=== PATIENT | male | born 1955 | race Caucasian/White ===

== ENCOUNTER 2019-05-17 06:47 | Day surgery (SDC) | payer MEDICARE, OTHER ==
[~2019-05-17] VITALS: Ht 175.3 cm; Wt 95.5 kg
[2019-05-17] MEDS ORDERED: NS IV 500 ML 500 ML ONE (07:30)
[2019-05-17 07:45] VITALS: BP 141/77
[2019-05-17] MEDS ORDERED: MIDAZOLAM 2 MG/2 ML (VERSED) VIAL IVP ONE (07:45)
[2019-05-17] MEDS ORDERED: fentaNYL INJECTION 100 MCG/2 ML AMP IVP ONE (07:45)
[2019-05-17] MEDS ORDERED: NS IV 500 ML 500 ML IV PRN (07:45)
--- NOTE | 2019-05-17 08:01 | Progress Note-Pre Operative ---
Pre-Operative Progress Note H&P Reviewed The H&P was reviewed, patient examined and no changes noted. Date Seen by Provider: May 17, 2019 Time Seen by Provider: 08:00 Date H&P Reviewed: May 17, 2019 Time H&P Reviewed: 08:01 Pre-Operative Diagnosis: MITRA Wiley MD May 17, 2019 08:01
[2019-05-17] MEDS ORDERED: fentaNYL INJECTION 100 MCG/2 ML AMP ONE ×2 (08:02)
[2019-05-17] MEDS ORDERED: MIDAZOLAM 2 MG/2 ML (VERSED) VIAL ONE ×4 (08:03)
--- NOTE | 2019-05-17 08:25 | Endoscopy Procedure Report ---
Colonoscopy Procedure Performed: Colonoscopy Pre-Operative Diagnosis: screen Post-Operative Diagnosis: none Atg Java Developer: None. Indications for Procedure: scereen Procedure Details: Informed consent was obtained, the risks, benefits and alternatives to the procedure were explained to the patient. The Wellington Soni, a 64 yr old male, was brought to to surgery area, sedated with 8 mg of Versed and 150 ug of fentanyl. He was placed in the left lateral decubitus position. Under direct visualization the scope was passed easily to the cecum. Cecum is identified by landmarks. Scope was carefully withdrawn. Findings: Ascending Colon: none Transverse Colon: none Descending/Sigmoid: none Rectum: none Estimated Blood Loss: 0mL Specimens: none Complications: None; patient tolerated the procedure well. Final Diagnosis: no findings so normal exam other than minimal scattered diverticuli in sigmoid MITRA TURNER MD May 17, 2019 08:25
[2019-05-17 08:50] VITALS: BP 114/67
[2019-05-17 09:15] VITALS: BP 121/73
[2019-05-17] MEDS ORDERED: DIPH25CA79 PO (09:19)
[2019-05-17] MEDS ORDERED: CARV3.12 PO (09:19)
[2019-05-17] MEDS ORDERED: GABA-488 PO (09:19)
[2019-05-17] MEDS ORDERED: NITR0.3T7 SL (09:19)
[2019-05-17] MEDS ORDERED: NAPR-1070 PO (09:19)
[2019-05-17] MEDS ORDERED: LISI-556 PO (09:19)
[2019-05-17] MEDS ORDERED: ASPI-999 PO (09:19)
== END 2019-05-17 09:30 ==
LOC: ENDO 06:47
PROVIDERS: ATTEND Pediatrics
DX: Z12.11 Encounter for screening for malignant neoplasm of colon (principal); M06.9 Rheumatoid arthritis, unspecified; I25.10 Atherosclerotic heart disease of native coronary artery without angina pectoris; E78.00 Pure hypercholesterolemia, unspecified; Z79.899 Other long term (current) drug therapy; Z95.1 Presence of aortocoronary bypass graft; Z82.3 Family history of stroke; Z82.49 Family history of ischemic heart disease and other diseases of the circulatory system; Z80.9 Family history of malignant neoplasm, unspecified; Z91.041 Radiographic dye allergy status; Z90.49 Acquired absence of other specified parts of digestive tract; Z79.82 Long term (current) use of aspirin

== ENCOUNTER 2023-05-04 05:23 | Emergency (ER) | payer MEDICARE, OTHER ==
[~2023-05-04] VITALS: Ht 175.2 cm; Wt 102.1 kg
[~2023-05-04 05:23] MED LIST: ASPI-999 PO; CARV3.12 PO; DIPH25CA79 PO; GABA-488 PO; LISI5TAB20 PO; NAPR-1070 PO; NITR0.3T7 SL
[2023-05-04] MEDS ORDERED: NS IV 1000 ML 1,000 ML IV STA (05:43)
[2023-05-04] MEDS ORDERED: morphine INJ 10 MG/ML 1ML (SYR OR VIAL) IVP STA (05:43)
[2023-05-04] MEDS ORDERED: KETOROLAC 15 MG/ML VIAL IVP ONE (05:45)
[2023-05-04] MEDS ORDERED: ONDANSETRON 4 MG/2 ML (SDV) Z0FRAN IVP ONE (05:45)
--- NOTE | 2023-05-04 05:50 | ED Abdominal Pain ---
General Stated Complaint: VOMITING|ABD PAIN|BACK PAIN Source of Information: Patient Exam Limitations: No Limitations History of Present Illness Date Seen by Provider: May 04, 2023 Time Seen by Provider: 05:25 Initial Comments 68-year-old male with past medical history of hypertension, CAD, prior history of kidney stones coming in via private vehicle due to left flank pain and suprapubic discomfort. Started around 2 AM this morning, associated with nonbloody nonbilious vomiting. He states it feels just like prior kidney stones. Typically he passes the stones by himself, has never needed a stent. Denies any fever, or any other concerns. He did have hydrocodone at home which she took, but vomited immediately afterwards. Allergies and Home Medications Allergies Uncoded Allergies: IV Contrast (Adverse Reaction, Unknown, 05/17/19) Patient Home Medication List Home Medication List Reviewed: Yes Aspirin (Aspirin) 81 Mg Tab.chew, 81 MG PO DAILY, (Reported) Entered as Reported by: JOHNNY DARLING on 05/17/19918 Carvedilol (Coreg) 3.125 Mg Tablet, 3.125 MG PO BID, (Reported) Entered as Reported by: JOHNNY DARLING on 05/17/19918 Diphenhydramine HCl (Benadryl) 25 Mg Capsule, 25 MG PO NEEDED, (Reported) Entered as Reported by: JOHNNY DARLING on 05/17/19918 Gabapentin (Gabapentin) 300 Mg Capsule, 300 MG PO DAILY, (Reported) Entered as Reported by: JOHNNY DARLING on 05/17/19918 Ibuprofen (Ibuprofen) 600 Mg Tablet, 600 MG PO Q6H PRN for PAIN-MILD Prescribed by: KEDAR MATOS on 05/04/23636 Lisinopril (Lisinopril) 5 Mg Tablet, 5 MG PO DAILY, (Reported) Entered as Reported by: JOHNNY DARLING on 05/17/19918 Naproxen Sodium (Anaprox Ds) 550 Mg Tablet, 550 MG PO BID, (Reported) Entered as Reported by: JOHNNY DARLING on 05/17/19918 Nitroglycerin (Nitroglycerin) 0.3 Mg Tab.subl, 0.3 MG SL NEEDED, (Reported) Entered as Reported by: JOHNNY DARLING on 05/17/19918 Ondansetron (Ondansetron Odt) 4 Mg Tab.rapdis, 4 MG SL Q6H PRN for NAUSEA/VOMITING Prescribed by: KEDAR MATOS on 05/04/23 0637 Tamsulosin HCl (Flomax) 0.4 Mg Cap, 0.4 MG PO DAILY Prescribed by: KEDAR MATOS on 05/04/23 0637 Review of Systems Review of Systems Constitutional: No fever EENTM: No Symptoms Reported Respiratory: No Symptoms Reported Cardiovascular: No Symptoms Reported Gastrointestinal: See HPI Genitourinary: See HPI Musculoskeletal: no symptoms reported Skin: no symptoms reported Psychiatric/Neurological: No Symptoms Reported Endocrine: No Symptoms Reported Hematologic/Lymphatic: No Symptoms Reported Past Wvwklqp-Nwiiit-Mxjcvy Hx Patient Social History Alcohol Use?: Yes Alcohol type: Beer Past Medical History Surgeries: Yes CABG, Orthopedic Respiratory: No Cardiac: Yes Coronary Artery Disease Neurological: No Genitourinary: No Gastrointestinal: No Musculoskeletal: Yes Arthritis Endocrine: No HEENT: No Cancer: No Psychosocial: No Integumentary: No Blood Disorders: No Physical Exam Vital Signs Vital Signs - First Documented 05/04/23 05:30 Temp 36.0 Pulse 66 Resp 16 B/P (MAP) 162/85 (110) Pulse Ox 99 O2 Delivery Room Air Capillary Refill : Height/Weight/BMI Height: 5'9.00" Weight: 210lbs. 9.0oz. 95.419743ld; 31.1 BMI Method: General Appearance: WD/WN, no apparent distress Neck: full range of motion Respiratory: chest non-tender, lungs clear, normal breath sounds, no respiratory distress, no accessory muscle use Cardiovascular: regular rate, rhythm, no edema Gastrointestinal: normal bowel sounds, non tender, soft; No distended, No guarding, No rebound Extremities: normal range of motion, non-tender Back: normal inspection, no CVA tenderness Neurologic/Psychiatric: no motor/sensory deficits, alert, normal mood/affect Skin: normal color, warm/dry Progress/Results/Core Measures Results/Orders Lab Results Laboratory Tests Test 05/04/23 05:50 05/04/23 06:00 05/04/23 06:33 Range/Units White Blood Count 10.6 4.3-11.0 10^3/uL Red Blood Count 4.76 4.30-5.52 10^6/uL Hemoglobin 14.6 13.3-17.7 g/dL Hematocrit 43 40-54 % Mean Corpuscular Volume 91 80-99 fL Mean Corpuscular Hemoglobin 31 25-34 pg Mean Corpuscular Hemoglobin Concent 34 32-36 g/dL Red Cell Distribution Width 13.1 10.0-14.5 % Platelet Count 237 130-400 10^3/uL Mean Platelet Volume 9.7 9.0-12.2 fL Immature Granulocyte % (Auto) 1 % Neutrophils (%) (Auto) 80 H 42-75 % Lymphocytes (%) (Auto) 14 12-44 % Monocytes (%) (Auto) 5 0-12 % Eosinophils (%) (Auto) 1 0-10 % Basophils (%) (Auto) 1 0-10 % Neutrophils # (Auto) 8.5 H 1.8-7.8 10^3/uL Lymphocytes # (Auto) 1.4 1.0-4.0 10^3/uL Monocytes # (Auto) 0.5 0.0-1.0 10^3/uL Eosinophils # (Auto) 0.1 0.0-0.3 10^3/uL Basophils # (Auto) 0.1 0.0-0.1 10^3/uL Immature Granulocyte # (Auto) 0.1 0.0-0.1 10^3/uL Sodium Level 139 135-145 MMOL/L Potassium Level 4.0 3.6-5.0 MMOL/L Chloride Level 104 98-107 MMOL/L Carbon Dioxide Level 21 21-32 MMOL/L Anion Gap 14 5-14 MMOL/L Blood Urea Nitrogen 29 H 7-18 MG/DL Creatinine 1.38 H 0.60-1.30 MG/DL Estimat Glomerular Filtration Rate 55 BUN/Creatinine Ratio 21 Glucose Level 126 H 70-105 MG/DL Calcium Level 9.3 8.5-10.1 MG/DL Corrected Calcium 9.3 8.5-10.1 MG/DL Total Bilirubin 0.3 0.1-1.0 MG/DL Aspartate Amino Transf (AST/SGOT) 14 5-34 U/L Alanine Aminotransferase (ALT/SGPT) 11 0-55 U/L Alkaline Phosphatase 103 40-136 U/L Total Protein 6.7 6.4-8.2 GM/DL Albumin 4.0 3.2-4.5 GM/DL Lipase 14 8-78 U/L My Orders Orders - KEDAR MATOS MD Ct Abdomen/Pelvis Wo (05/04/23 05:43) Cbc With Automated Diff (05/04/23 05:43) Comprehensive Metabolic Panel (05/04/23 05:43) Lipase (05/04/23 05:43) Ua Culture If Indicated (05/04/23 05:43) Ketorolac Injection (Toradol Injection) (05/04/23 05:45) Ns Iv 1000 Ml (Sodium Chloride 0.9%) (05/04/23 05:43) Ondansetron Injection (Zofran Injectio (05/04/23 05:45) Morphine Injection (Morphine Injection (05/04/23 05:43) Medications Given in ED Current Medications Medications Dose Ordered Sig/Julián Route Start Time Stop Time Status Last Admin Dose Admin Ketorolac Tromethamine 15 mg ONCE ONCE IVP 05/04/23 05:45 05/04/23 05:47 DC 05/04/23 05:57 15 MG Ondansetron HCl 4 mg ONCE ONCE IVP 05/04/23 05:45 05/04/23 05:47 DC 05/04/23 05:57 4 MG Vital Signs/I&O 05/04/23 05:30 Temp 36.0 Pulse 66 Resp 16 B/P (MAP) 162/85 (110) Pulse Ox 99 O2 Delivery Room Air Progress Progress Note : Progress Note 68-year-old male with above history coming in due to left flank, suprapubic discomfort, nonbloody nonbilious vomiting. ABCs were intact and vitals were stable on presentation. Physical exam with mild suprapubic discomfort initially, but otherwise well-appearing. He actually feels like he could have passed a kidney stone prior to arrival. Differential obviously includes much more given his age and risk factors. Much less likely to be a ruptured AAA given he is well-appearing versus cystitis versus of course ureterolithiasis. An IV was placed and basic labs were obtained he was given morphine for pain as well as Toradol, Zofran, IV fluids. CT abdomen pelvis ordered to further evaluate for the etiology as well as basic labs and urine studies. CT imaging on my interpretation with a kidney stone on the left. Prescription pain and nausea medicine sent to his pharmacy. We will try a trial of passage. Just awaiting the urinalysis to see if there is an infection. If there is, an antibiotic will be sent as well. Diagnostic Imaging Diagonstic Imaging: CT (abd/pelvis) Comments [facility] [place], [place] NAME: NE [facility]OD[facility]IGUEZ [facility] REC#: [id number] PT STATUS: REG ER : 1955 PHYSICIAN: KEDAR MATOS MD ADMIT DATE: 05/04/23/ER FS Draft Date of Exam:05/04/23 CT ABDOMEN/PELVIS WO CLINICAL INDICATION: Patient with left flank pain. Patient has history of stones. EXAM: CT exam of the abdomen and pelvis is performed without IV or oral contrast using stone protocol. Coronal and sagittal reformatted images were created. Auto Exposure Controls were utilized during the CT exam to meet ALARA standards for radiation dose reduction. COMPARISON: None. FINDINGS: There is mild atelectasis involving the posterior aspects of both lungs. Left hip arthroplasty is partially visualized and unremarkable as seen. There is lower lumbar spine facet arthropathy. There is L3-L4 posterior lumbar interbody fusion and L4-L5 interbody fusion changes seen. There are degenerative spurs involving the visualized lower thoracic spine and lumbar spine. The liver, spleen, pancreas, and adrenal glands are unremarkable. The gallbladder is surgically absent. There is a 4 mm stone within the distal left ureter which is roughly 1 to 2 cm from the left UVJ region. There is mild left hydroureteronephrosis. There is mild left perinephric and periureteral fat stranding. There are no other stones in the ureters seen. There is a small nonobstructive stone or two closely adjacent small stones involving the inferior aspect of the right kidney. Both kidneys are otherwise unremarkable. There is a small amount of fluid within the bladder. There is diffuse bladder wall thickening which is nonspecific. Streak artifact from the left hip obscures portions of the pelvis. There is diverticulosis involving the sigmoid colon, descending colon, and transverse colon but no CT evidence of diverticulitis. The appendix is unremarkable. There is no intestinal obstruction. There is no intra-abdominal free air or free fluid. There is no lymphadenopathy. The extra abdominal and extrapelvic soft tissue structures are unremarkable. IMPRESSION: 1: There is a 4 mm obstructive stone within the distal left ureter which causes mild left hydroureteronephrosis. There is also mild left perinephric and periureteral fat stranding. 2: There is another nonobstructive stone or closely adjacent small stones involving the inferior aspect of the right kidney. 3: There is diverticulosis but no CT evidence of diverticulitis. Dictated on workstation # [id number] Dict: 05/04/2325 Trans: 05/04/23 0640 [id number] Interpreted by: DEB MESA MD Electronically signed by: Departure Impression Primary Impression: Ureterolithiasis Disposition: HOME, SELF-CARE Condition: Stable Departure-Patient Inst. Decision time for Depature: 07:00 Referrals: MITRA TURNER MD (PCP/Family) Primary Care Physician Patient Instructions: Kidney stones in adults Add. Discharge Instructions: It appears like you have a kidney stone almost ready to pass on the left. Take your hydrocodone as needed. Nausea medicines were sent to your pharmacy as well as tamsulosin which urologist typically want you to be on to try to help the stone pass. Prescription ibuprofen was also sent to your pharmacy which will help. If you need a urologist to follow-up with, Dr. Apodaca's in [place], his number is [phone]. Scripts Cefdinir (Cefdinir) 300 Mg Capsule 300 MG PO BID for 7 Days, #14 CAP Prov: KEDAR MATOS MD 05/04/23 Tamsulosin HCl (Flomax) 0.4 Mg Cap 0.4 MG PO DAILY for 30 Days, #30 CAP Prov: KEDAR MATOS MD 05/04/23 Ibuprofen (Ibuprofen) 600 Mg Tablet 600 MG PO Q6H PRN for PAIN-MILD for 7 Days, #28 TAB Prov: KEDAR MATOS MD 05/04/23 Ondansetron (Ondansetron Odt) 4 Mg Tab.rapdis 4 MG SL Q6H PRN for NAUSEA/VOMITING for 5 Days, #20 TAB Prov: KEDAR MATOS MD 05/04/23 Work/School Note: Family Work Note, Patient Received Medical Care In the Emergency Department On: May 04, 2023 Patient Will Be Able to Return to Work/School On: May 05, 2023 Work Release Form Date Seen in the Emergency Department: May 04, 2023 Return to Work: May 05, 2023 Restrictions: Return-No Vomiting(24hrs) KEDAR MATOS MD May 04, 2023 05:50
[2023-05-04 06:04] LABS: BASOPHILS # (AUTO) 0.1 10^3/uL (0.0-0.1); BASOPHILS % (AUTO) 1 % (0-10); EOSINOPHILS # (AUTO) 0.1 10^3/uL (0.0-0.3); EOSINOPHILS % (AUTO) 1 % (0-10); HEMATOCRIT 43 % (40-54); HEMOGLOBIN 14.6 g/dL (13.3-17.7); LYMPHOCYTES # (AUTO) 1.4 10^3/uL (1.0-4.0); LYMPHOCYTES % (AUTO) 14 % (12-44); MEAN CORPUSCULAR HEMOGLOBIN 31 pg (25-34); MEAN CORPUSCULAR HGB CONC 34 g/dL (32-36); MEAN CORPUSCULAR VOLUME 91 fL (80-99); MEAN PLATELET VOLUME 9.7 fL (9.0-12.2); MONOCYTES # (AUTO) 0.5 10^3/uL (0.0-1.0); MONOCYTES % (AUTO) 5 % (0-12); NEUTROPHILS # (AUTO) 8.5 10^3/uL (1.8-7.8); NEUTROPHILS % (AUTO) 80 % (42-75); PLATELET COUNT 237 10^3/uL (130-400); WHITE BLOOD COUNT 10.6 10^3/uL (4.3-11.0)
[2023-05-04 06:35] LABS: BILIRUBIN,TOTAL 0.3 MG/DL (0.1-1.0); CALCIUM 9.3 MG/DL (8.5-10.1); CREATININE SERUM 1.38 MG/DL (0.60-1.30); TOTAL PROTEIN 6.7 GM/DL (6.4-8.2)
[2023-05-04] MEDS ORDERED: IBUP-1773 PO (06:37)
[2023-05-04] MEDS ORDERED: TMSL.4C PO (06:37)
[2023-05-04] MEDS ORDERED: ONDA4TAB11 SL (06:37)
--- NOTE | 2023-05-04 06:40 | Diagnostic Imaging Report ---
CLINICAL INDICATION: Patient with left flank pain. Patient has history of stones. EXAM: CT exam of the abdomen and pelvis is performed without IV or oral contrast using stone protocol. Coronal and sagittal reformatted images were created. Auto Exposure Controls were utilized during the CT exam to meet ALARA standards for radiation dose reduction. COMPARISON: None. FINDINGS: There is mild atelectasis involving the posterior aspects of both lungs. Left hip arthroplasty is partially visualized and unremarkable as seen. There is lower lumbar spine facet arthropathy. There is L3-L4 posterior lumbar interbody fusion and L4-L5 interbody fusion changes seen. There are degenerative spurs involving the visualized lower thoracic spine and lumbar spine. The liver, spleen, pancreas, and adrenal glands are unremarkable. The gallbladder is surgically absent. There is a 4 mm stone within the distal left ureter which is roughly 1 to 2 cm from the left UVJ region. There is mild left hydroureteronephrosis. There is mild left perinephric and periureteral fat stranding. There are no other stones in the ureters seen. There is a small nonobstructive stone or two closely adjacent small stones involving the inferior aspect of the right kidney. Both kidneys are otherwise unremarkable. There is a small amount of fluid within the bladder. There is diffuse bladder wall thickening which is nonspecific. Streak artifact from the left hip obscures portions of the pelvis. There is diverticulosis involving the sigmoid colon, descending colon, and transverse colon but no CT evidence of diverticulitis. The appendix is unremarkable. There is no intestinal obstruction. There is no intra-abdominal free air or free fluid. There is no lymphadenopathy. The extra abdominal and extrapelvic soft tissue structures are unremarkable. IMPRESSION: 1: There is a 4 mm obstructive stone within the distal left ureter which causes mild left hydroureteronephrosis. There is also mild left perinephric and periureteral fat stranding. 2: There is another nonobstructive stone or closely adjacent small stones involving the inferior aspect of the right kidney. 3: There is diverticulosis but no CT evidence of diverticulitis. Dictated by: Dictated on workstation # [id number]
[2023-05-04 06:46] LABS: BILIRUBIN,URINE NEGATIVE (NEGATIVE); CLARITY,URINE CLEAR; COLOR,URINE YELLOW; GLUCOSE, URINE (UA) NEGATIVE (NEGATIVE); KETONES,URINE 1+ (NEGATIVE); LEUKOCYTE ESTERASE ,URINE NEGATIVE (NEGATIVE); NITRITE,URINE NEGATIVE (NEGATIVE); PROTEIN,URINE NEGATIVE (NEGATIVE)
[2023-05-04 06:58] LABS: BACTERIA,URINE NEGATIVE /HPF; HYALINE CASTS, URINE RARE /LPF; SQUAMOUS EPITHELIAL CELL,UR RARE /HPF; WBC,URINE RARE /HPF
[2023-05-04] MEDS ORDERED: CEFD300C3 PO (07:00)
[2023-05-04 07:07] VITALS: BP 141/82
== END 2023-05-04 07:07 | disposition home or self-care (01) ==
LOC: EDUNIT# 05:23 → ER FS 05:25
DX: N13.2 Hydronephrosis with renal and ureteral calculous obstruction (principal); Z87.442 Personal history of urinary calculi; Z28.310 Unvaccinated for COVID-19
CPT/HCPCS: 36415; 74176; 80053; 81000; 83690; 85025